=== PATIENT | female | born 1995 ===

== ENCOUNTER 2017-09-09 14:22 | Emergency (ER) ==
--- NOTE | 2017-09-10 09:27 | EKG REPORT ---
SEVERITY:- ABNORMAL ECG - SINUS RHYTHM LEFT ATRIAL ABNORMALITY BORDERLINE RIGHT AXIS DEVIATION : Confirmed by: Sharon Story 10-Sep-2017 09:26:37
== END 2017-09-09 16:00 | disposition left against medical advice (07) ==
LOC: ER 14:22
DX: Z53.21 Procedure and treatment not carried out due to patient leaving prior to being seen by health care provider (principal)
CPT/HCPCS: 93005; 93010